=== PATIENT | female | born 1965 | race Caucasian/White ===

== ENCOUNTER 2016-11-02 17:31 | Emergency (ER) | payer BC ==
[2016-11-02 17:42] VITALS: BP 149/80
--- NOTE | 2016-11-02 17:53 | UC ---
Throat Pain/Nasal Lemo HPI - HPI Summary HPI Summary: complainty of cough for 4-[address] Clark on 11/02/16 started on symbicort and tessalon perlvadim feels like she is getting worse, cough is worse, feels like she is wheezing more often cough is non productive using her albuterol without good results- last used albuterol at 2PM today taking cough syrup without relief poor appetite but drinking fluids denies fever and chills - History of Current Complaint Chief Complaint: UCRespiratory Stated Complaint: RESPIRATORY Time Seen by Provider: 11/02/16 17:40 Hx Obtained From: Patient Hx Last Menstrual Period: 2 MONTHS AGO - Allergies/Home Medications Allergies/Adverse Reactions: Allergies Allergy/AdvReac Type Severity Reaction Status Date / Time Azithromycin [From Zithromax] Allergy Severe GI PROBLEMS Verified 11/02/16 17:43 MYCINS Allergy Severe GI Uncoded 11/02/16 17:43 OPIATES Allergy Severe ITCHING, Uncoded 11/02/16 17:43 VOMITING Home Medications: Home Medications Albuterol HFA INHALER* [Ventolin HFA Inhaler*] 11/02/16 [History Confirmed 06/11] Benzonatate CAP* [Tessalon CAP*] 11/02/16 [History Confirmed 11/02/16] Budesonide/Formote 80/4.5(NF) [Symbicort 80/4.5 (NF)] 11/02/16 [History] PMH/Surg Hx/FS Hx/Imm Hx Respiratory History Of: Reports: Asthma - Surgical History Surgical History: None - Family History Known Family History: Negative: Cardiac Disease, Hypertension, Diabetes - Social History Occupation: Employed Full-time Lives: With Family Alcohol Use: Occasionally Substance Use Type: None Smoking Status (MU): Never Smoked Tobacco Review of Systems Constitutional: Negative Skin: Negative Eyes: Negative ENT: Sore Throat, Nasal Discharge Respiratory: Cough Cardiovascular: Negative Gastrointestinal: Negative Genitourinary: Negative Motor: Negative Neurovascular: Negative Musculoskeletal: Negative Neurological: Negative Psychological: Negative All Other Systems Reviewed And Are Negative: Yes Physical Exam Triage Information Reviewed: Yes Appearance: No Pain Distress, Well-Nourished, Ill-Appearing Vital Signs: Initial Vital Signs Temp 98.6 F 11/02/16 17:39 Pulse 100 11/02/16 17:39 Resp 18 11/02/16 17:39 BP 149/80 11/02/16 17:39 Pulse Ox 97 11/02/16 17:39 Vital Signs Reviewed: Yes Eyes: Positive: Conjunctiva Clear ENT: Positive: Pharyngeal erythema, Nasal congestion, TMs normal Neck: Positive: No Lymphadenopathy Respiratory: Positive: Wheezing - expiratory wheezing RLL - rhonchi Cardiovascular: Positive: RRR, No Murmur, Pulses Normal Abdomen Description: Positive: Nontender, Soft Bowel Sounds: Positive: Present Musculoskeletal: Positive: No Edema Neurological: Positive: Alert Psychological Exam: Normal Skin Exam: Normal Re-Evaluation - Re-Evaluation First Eval Re-Evaluation Time: 18:23 Change: Improved - less wheezing throughout Throat Pain/Nasal Course/Dx - Course Course Of Treatment: exam completd. wheezing,rhonchi in RLL. will treat with predniosne and doxycycline and followup with pcp - Differential Dx/Diagnosis Provider Diagnoses: asthma exacerbation Discharge - Discharge Plan Condition: Stable Disposition: HOME Prescriptions: DOXYcycline CAP(*) [DOXYcycline 100MG CAP(*)] 100 mg PO BID #20 cap predniSONE TAB* [Deltasone TAB*] 50 mg PO DAILY #5 tab Patient Education Materials: Asthma (ED) Referrals: Chiquita Villatoro NP [Primary Care Provider] - Additional Instructions: Please take antibiotic as directed Use your albuterol inhaler every 4-6 hours when needed for wheezing, shortness of breath or uncontrolled coughing. Increase fluids and rest Take acetaminophen or ibuprofen for fever or pain Please review your discharge instructions. If your symptoms do not improve please call your primary care provider or return to urgent care.
[2016-11-02] MEDS ORDERED: Albuterol/Ipratropium NEB.SOL* Albuterol 2.5 MG/Ipratropium 0.5 MG 3 ML INH ONE (17:57)
[2016-11-02] MEDS ORDERED: predniSONE TAB* 20 MG PO ONE (18:22)
[2016-11-02] MEDS ORDERED: DOXYcycline CAP(*) 100 MG PO ONE (18:22)
== END 2016-11-02 18:35 | disposition home or self-care (01) ==
LOC: UCEAST 17:31
DX: J45.901 Unspecified asthma with (acute) exacerbation (principal); Z88.1 Allergy status to other antibiotic agents
CPT/HCPCS: 99212; A9270-GY; G0463; J7512